=== PATIENT | male | born 1940 | race Caucasian/White ===

== ENCOUNTER → 2020-11-01 | Outpatient (CLI) | payer MEDICARE ==
[~2020-11-01] MED LIST: REGADENOSON 0.4 MG/5 ML SYRINGE ONE
== END | disposition home or self-care (01) ==
LOC: CFH 06:40
PROVIDERS: ATTEND Internal Medicine Cardiovascular Disease
DX: I06.1 Rheumatic aortic insufficiency (principal); I10 Essential (primary) hypertension; R07.89 Other chest pain
CPT/HCPCS: 78452; 93017; 93306; A9502; J2785